=== PATIENT | male | born 1945 | race Hispanic/Latino ===

== ENCOUNTER 2022-12-23 15:03 | Emergency (ER) | payer OTHER ==
[~2022-12-23] VITALS: Ht 177.8 cm; Wt 95.3 kg
[2022-12-23 17:06] LABS: APPEARANCE,URINE CLEAR (CLEAR); BILIRUBIN,URINE NEGATIVE (NEGATIVE); COLOR,URINE LIGHT-YELLOW (YELLOW); GLUCOSE, URINE (UA) NEGATIVE (NEGATIVE); KETONES,URINE NEGATIVE (NEGATIVE); LEUKOCYTE ESTERASE ,URINE NEGATIVE Leu/uL (NEGATIVE); NITRATE,URINE NEGATIVE (NEGATIVE); OCCULT BLOOD,URINE SMALL (NEGATIVE); PROTEIN,URINE NEGATIVE (NEGATIVE); UROBILINOGEN,URINE 0.2 mg/dL (0.2-1.0)
[2022-12-23 17:13] LABS: BACTERIA,URINE RARE /HPF (None Seen); OTHER CASTS, URINE 1 /LPF (None Seen); WBC,URINE 0-1 /HPF (0-1)
[2022-12-23 17:57] VITALS: BP 114/64
== END 2022-12-23 18:31 | disposition home or self-care (01) ==
LOC: EDH 15:03
DX: R33.8 Other retention of urine (principal); N40.1 Benign prostatic hyperplasia with lower urinary tract symptoms; I10 Essential (primary) hypertension
CPT/HCPCS: 51701; 81001